=== PATIENT | female | born 1995 | race Caucasian/White ===

== ENCOUNTER 2019-08-22 21:31 | Emergency (ER) | payer BC ==
[~2019-08-22] VITALS: Ht 160 cm; Wt 54.4 kg
--- NOTE | 2019-08-22 21:56 | NUR ---
Patient walked into ER c/o bilateral flank pain but more pain on right flank since this AM. Dr Shoemaker into eval patient.
[2019-08-22 21:59] LABS: *BILIRUBIN,URIN NEGATIVE (NEGATIVE); *BLOOD, URINE NEGATIVE (NEGATIVE); *CLARITY,URINE CLEAR (CLEAR); *COLOR,URINE YELLOW (YELLOW); *KETONES,URINE NEGATIVE (NEGATIVE); *UROBILINOGEN,URINE 0.2 E.U./dl (NORMAL); LEUKOCYTE ESTERASE ,URINE NEGATIVE (NEGATIVE); NITRITE, URINE NEGATIVE (NEGATIVE); PH,URINE 5.5 (5.0-8.0); UGLUCOSE NEGATIVE (NEGATIVE)
[2019-08-22 22:03] LABS: *URINE HCG, QUAL NEGATIVE (NEGATIVE)
[2019-08-22] MEDS ORDERED: ONDANSETRON ODT 4 MG TAB.RAPDIS SL ONE (22:15)
[2019-08-22] MEDS ORDERED: CEFTRIAXONE 1 G VIAL IM ONE (22:15)
[2019-08-22] MEDS ORDERED: AZITHROMYCIN 250 MG TABLET PO ONE (22:15)
[2019-08-22] MEDS ORDERED: AZITHROMYCIN 250 MG TABLET ONE (22:17)
[2019-08-22] MEDS ORDERED: LIDOCAINE HCL 1% 20 ML VIAL ONE (22:17)
[2019-08-22] MEDS ORDERED: ONDANSETRON ODT 4 MG TAB.RAPDIS ONE (22:18)
[2019-08-22] MEDS ORDERED: CEFTRIAXONE 1 G VIAL ONE (22:18)
[2019-08-22 22:55] VITALS: BP 125/75
--- NOTE | 2019-08-22 22:55 | NUR ---
Patient discharged to home in stable conditon. Written and verbal after care instructions given. Patient verbalizes understanding of instructions. Walked out of ER with no distress noted.
[2019-08-25 01:06] LABS: *GC NAA Negative (Negative); *TRIC.VAG. NAA Negative (Negative)
== END 2019-08-22 22:56 | disposition home or self-care (01) ==
LOC: ER 21:31
DX: M54.5 Low back pain (principal)
CPT/HCPCS: 81001; 84703; 87491; 96372; 99283; J0696; J3490; A4663; Q0144; Q0162